=== PATIENT | female | born 1990 | race Caucasian/White ===

== ENCOUNTER 2018-05-25 07:00 | Inpatient (IN) | payer OTHER ==
[~2018-05-25] VITALS: Ht 167.6 cm; Wt 70.3 kg
[2018-06-14] MEDS ORDERED: PRENATAL TABLE1 EAC2 PO (08:22)
[2018-06-17] MEDS ORDERED: CODE1TAB37 PO (10:14)
== END 2018-06-17 13:01 | disposition home or self-care (01) | DRG 766 ==
LOC: OB/GYN 06-13 07:00 → LDR 06-14 06:56 → O/R 06-14 06:56 → OB/GYN 06-14 13:07
PROVIDERS: Obstetrics & Gynecology
PROC: 10907ZC Drainage of Amniotic Fluid, Therapeutic from Products of Conception, Via Natural or Artificial Opening (ICD-10-PCS; 2018-06-14)
PROC: 3E033VJ Introduction of Other Hormone into Peripheral Vein, Percutaneous Approach (ICD-10-PCS; 2018-06-14)
PROC: 4A033R1 Measurement of Arterial Saturation, Peripheral, Percutaneous Approach (ICD-10-PCS; 2018-06-14)
PROC: 4A1HXCZ Monitoring of Products of Conception, Cardiac Rate, External Approach (ICD-10-PCS; 2018-06-14)
PROC: 10D00Z1 Extraction of Products of Conception, Low, Open Approach (ICD-10-PCS; principal; 2018-06-14 12:00)
DX: O48.0 Post-term pregnancy (principal); O76 Abnormality in fetal heart rate and rhythm complicating labor and delivery; Z3A.40 40 weeks gestation of pregnancy; Z37.0 Single live birth

== ENCOUNTER → 2021-02-17 | Outpatient (CLI) | payer OTHER ==
[~2021-02-17] MED LIST: CODE1TAB37 PO; PRENATAL TABLE1 EAC2 PO
== END | disposition home or self-care (01) ==
LOC: PRENATAL 08:00
PROVIDERS: ATTEND Obstetrics & Gynecology Maternal & Fetal Medicine
DX: O35.0XX1 Maternal care for (suspected) central nervous system malformation in fetus, fetus 1 (principal); O35.3XX1 Maternal care for (suspected) damage to fetus from viral disease in mother, fetus 1; O98.513 Other viral diseases complicating pregnancy, third trimester; Z36.89 Encounter for other specified antenatal screening; Z3A.30 30 weeks gestation of pregnancy

== ENCOUNTER → 2021-05-18 | Outpatient (CLI) | payer OTHER ==
[~2021-05-18] MED LIST changes: +GLUCOMETERDEVICE {1, null}; +GLUCOMETERSTRIP {1, null}; +LANCETS {1, null}; +NAPR500T14 PO; +Tylenol #3 PO
== END | disposition home or self-care (01) ==
LOC: PRENATAL 16:30
PROVIDERS: ATTEND Obstetrics & Gynecology Maternal & Fetal Medicine
DX: O26.843 Uterine size-date discrepancy, third trimester (principal); O36.8131 Decreased fetal movements, third trimester, fetus 1; O24.410 Gestational diabetes mellitus in pregnancy, diet controlled; Z36.89 Encounter for other specified antenatal screening; Z3A.34 34 weeks gestation of pregnancy

== ENCOUNTER 2021-06-04 08:15 | Inpatient (IN) | payer OTHER ==
[~2021-06-04] VITALS: Ht 165.1 cm; Wt 3.2 kg
[~2021-06-04 08:15] MED LIST changes: -NAPR500T14 PO; -Tylenol #3 PO
[2021-06-13] MEDS ORDERED: Tylenol #3 PO (09:04)
[2021-06-13] MEDS ORDERED: NAPR500T14 PO (09:04)
== END 2021-06-13 13:33 | disposition home or self-care (01) | DRG 788 ==
LOC: OB/GYN 06-10 08:15 → O/R 06-10 08:24 → SURG-SUITE 06-10 08:24 → OB/GYN 06-10 20:00 → SURG-SUITE 06-13 13:33
PROVIDERS: ADMIT Obstetrics & Gynecology; ATTEND Obstetrics & Gynecology
PROC: 4A1HXFZ Monitoring of Products of Conception, Cardiac Rhythm, External Approach (ICD-10-PCS; 2021-06-10)
PROC: 10D00Z1 Extraction of Products of Conception, Low, Open Approach (ICD-10-PCS; principal; 2021-06-10 20:00)
DX: O34.211 Maternal care for low transverse scar from previous cesarean delivery (principal); O24.420 Gestational diabetes mellitus in childbirth, diet controlled; Z37.0 Single live birth; Z3A.38 38 weeks gestation of pregnancy; Z20.822 Contact with and (suspected) exposure to COVID-19